=== PATIENT | female | born 1970 | race Asian ===

== ENCOUNTER → 2017-06-16 | Outpatient (CLI) | payer OTHER | LOC: BRMIMAGING 11:12 | PROVIDERS: ATTEND Family Medicine | DX: Z12.31 Encounter for screening mammogram for malignant neoplasm of breast (principal) | CPT/HCPCS: G0202 ==

== ENCOUNTER → 2017-06-28 | Outpatient (CLI) | payer OTHER | LOC: BRMIMAGING 08:46 | PROVIDERS: ATTEND Family Medicine | DX: Z12.39 Encounter for other screening for malignant neoplasm of breast (principal); N63 Unspecified lump in breast | CPT/HCPCS: 76641-PO; G0206 ==

== ENCOUNTER → 2017-10-11 | Outpatient (CLI) | payer OTHER | LOC: BRMIMAGING 10:52 | PROVIDERS: ATTEND Internal Medicine | DX: M25.511 Pain in right shoulder (principal); M25.512 Pain in left shoulder; M50.322 Other cervical disc degeneration at C5-C6 level; M99.71 Connective tissue and disc stenosis of intervertebral foramina of cervical region | CPT/HCPCS: 72052-PO; 72070-PO; 73030-PO ==

== ENCOUNTER → 2018-06-20 | Outpatient (CLI) | payer OTHER | LOC: BRMIMAGING 13:05 | PROVIDERS: ATTEND Family Medicine | DX: Z12.31 Encounter for screening mammogram for malignant neoplasm of breast (principal) ==